=== PATIENT | male | born 1995 | race African-American/Black ===

== ENCOUNTER 2020-02-25 15:59 | Emergency (ER) | payer BC, MEDICAID ==
[~2020-02-25] VITALS: Ht 193 cm; Wt 88.4 kg
[2020-02-25] MEDS ORDERED: AZITHROMYCIN 500 MG TABLET PO ONE (16:15)
[2020-02-25] MEDS ORDERED: CEFTRIAXONE SODIUM 250 MG/VIAL IM ONE (16:15)
[2020-02-25 16:30] VITALS: BP 159/82
[2020-02-25 17:00] LABS: CLARITY URINE TURBID (CLEAR); COLOR URINE YELLOW (YELLOW); KETONES URINE NEGATIVE (NEGATIVE); LEUKOCYTE ESTERASE URINE 2+ (NEGATIVE); NITRITE URINE NEGATIVE (NEGATIVE); OCCULT BLOOD URINE NEGATIVE (NEGATIVE); PH URINE 7.5 (4.5-8.0); PROTEIN URINE NEGATIVE (NEGATIVE); SPECIFIC GRAVITY URINE 1.017 (1.005-1.030)
== END 2020-02-25 16:32 | disposition home or self-care (01) ==
LOC: ER 15:59
DX: Z20.2 Contact with and (suspected) exposure to infections with a predominantly sexual mode of transmission (principal)
CPT/HCPCS: 81003; 87086; 96372; 99283; J0696

== ENCOUNTER 2021-04-27 20:28 | Emergency (ER) | payer BC, MEDICAID ==
[~2021-04-27] VITALS: Ht 185.4 cm; Wt 93.0 kg
[2021-04-27] MEDS ORDERED: ACET-2708 MT (23:49)
[2021-04-27] MEDS ORDERED: IBUP-2029 MT (23:49)
[2021-04-28] MEDS ORDERED: IBUPROFEN 800MG TABLET PO ONE (00:30)
[2021-04-28 00:52] LABS: CLARITY URINE CLEAR (CLEAR); COLOR URINE DARK YELLOW (YELLOW); KETONES URINE TRACE (NEGATIVE); LEUKOCYTE ESTERASE URINE TRACE (NEGATIVE); NITRITE URINE NEGATIVE (NEGATIVE); OCCULT BLOOD URINE NEGATIVE (NEGATIVE); PROTEIN URINE 2+ (NEGATIVE)
[2021-04-28 01:03] LABS: BASOPHILS % 0.7 % (0.0-2.0); HEMATOCRIT. 47.3 % (42.0-52.0); HEMOGLOBIN. 15.8 g/dL (14.0-18.0); LYMPHOCYTES % 36.4 % (20.0-50.0); MEAN CORPUSCULAR HEMOGLOBIN 29.2 pg (28.0-32.0); MEAN CORPUSCULAR VOLUME 87.6 fL (80.0-94.0); MEAN PLATELET VOLUME 7.6 fl (7.4-10.4); MONOCYTES % 10.4 % (2.0-8.0); NEUTROPHILS % 52.5 % (40.0-76.0); PLATELET 199 x1000/uL (130-400); RED CELL DISTRIBUTION WIDTH 13.8 % (11.6-14.6)
[2021-04-28 01:06] LABS: CHLORIDE 103 mEq/L (98-107)
[2021-04-28 02:01] VITALS: BP 118/76
== END 2021-04-28 02:02 | disposition home or self-care (01) ==
LOC: ER 20:28
DX: R50.9 Fever, unspecified (principal); R63.0 Anorexia
CPT/HCPCS: 36415; 80053; 81003; 85025; 99283

== ENCOUNTER 2021-08-24 12:11 | Emergency (ER) | payer OTHER, MEDICAID ==
[~2021-08-24] VITALS: Ht 193 cm; Wt 93.0 kg
[~2021-08-24 12:11] MED LIST: ACET-2708 MT; IBUP-2029 MT
[2021-08-24 12:57] VITALS: BP 153/78
[2021-08-24] MEDS ORDERED: DOXYCYCLINE HYCLATE 100MG CAPSULE PO ONE (13:15)
[2021-08-24] MEDS ORDERED: CEFTRIAXONE SODIUM 500 MG/VIAL IM ONE (13:15)
[2021-08-24] MEDS ORDERED: LIDOCAINE HCL/PF 1% 10 MG/ML 5ML VIAL INFIL ONE (13:15)
[2021-08-24] MEDS ORDERED: NAPR-1176 MT (13:16)
[2021-08-24] MEDS ORDERED: DOXY-326 MT (13:16)
[2021-08-24 13:57] LABS: CLARITY URINE CLEAR (CLEAR); COLOR URINE YELLOW (YELLOW); KETONES URINE NEGATIVE (NEGATIVE); LEUKOCYTE ESTERASE URINE 1+ (NEGATIVE); NITRITE URINE NEGATIVE (NEGATIVE); OCCULT BLOOD URINE NEGATIVE (NEGATIVE); PROTEIN URINE NEGATIVE (NEGATIVE); SPECIFIC GRAVITY URINE 1.019 (1.005-1.030); UROBILINOGEN URINE 0.2 E.U./dL (0.2-1.0)
[2021-08-26 05:12] LABS: HIV SCREEN 4G Non Reactive (Non Reactive)
[2021-08-27 04:07] LABS: NEISSERIA GONORRHOEAE NAA Negative (Negative)
== END 2021-08-24 14:17 | disposition home or self-care (01) ==
LOC: ER 12:11
DX: Z20.2 Contact with and (suspected) exposure to infections with a predominantly sexual mode of transmission (principal); M25.512 Pain in left shoulder
CPT/HCPCS: 81003; 86592; 87086; 87389; 87491; 87591; 96372; 99283; J0696; J3490

== ENCOUNTER 2022-06-06 18:49 | Emergency (ER) | payer MEDICAID, OTHER ==
[~2022-06-06] VITALS: Ht 193 cm; Wt 93.0 kg
[~2022-06-06 18:49] MED LIST changes: +DOXY-326 MT; +NAPR-1176 MT
[2022-06-06 19:51] VITALS: BP 123/81
[2022-06-06] MEDS ORDERED: AZITHROMYCIN 500 MG TABLET PO ONE (23:30)
[2022-06-06] MEDS ORDERED: CEFTRIAXONE SODIUM 500 MG/VIAL IM ONE (23:30)
[2022-06-08 08:11] LABS: HIV SCREEN 4G Non Reactive (Non Reactive)
[2022-06-10 04:07] LABS: NEISSERIA GONORRHOEAE NAA Negative (Negative)
== END 2022-06-06 23:59 | disposition home or self-care (01) ==
LOC: ER 18:58
DX: Z20.2 Contact with and (suspected) exposure to infections with a predominantly sexual mode of transmission (principal); Z70.8 Other sex counseling
CPT/HCPCS: 87389; 87491; 87591; 96372; 99283; J0696

== ENCOUNTER 2025-05-09 16:48 | Emergency (ER) | payer MEDICAID ==
[~2025-05-09] VITALS: Ht 188 cm; Wt 92.0 kg
[~2025-05-09 16:48] MED LIST changes: -DOXY-326 MT; +DOXY-461 MT; +IBUP-1455 MT; -IBUP-2029 MT
[2025-05-09 17:05] VITALS: O2SAT 100
[2025-05-09] MEDS: IBUPROFEN 600MG TABLET PO ONE (18:14)
[2025-05-09] MEDS ORDERED: IBUP-2030 MT (18:15)
[2025-05-09] MEDS ORDERED: LIDO-53 TP (18:15)
[2025-05-09] MEDS: LIDOCAINE 5% PATCH TOP SCH (18:21)
[2025-05-09 18:22] VITALS: BP 130/80; PULSE 80; RESP 15; TEMP 36.8; O2SAT 100
== END 2025-05-09 18:31 | disposition home or self-care (01) ==
LOC: ER 16:48
DX: M75.91 Shoulder lesion, unspecified, right shoulder (principal); Z79.899 Other long term (current) drug therapy
CPT/HCPCS: 73030; 99283

== ENCOUNTER 2025-06-04 22:06 | Emergency (ER) | payer MEDICAID ==
[~2025-06-04] VITALS: Ht 193 cm; Wt 91.0 kg
[~2025-06-04 22:06] MED LIST changes: +IBUP-2030 MT; +LIDO-53 TP
[2025-06-04 22:39] VITALS: O2SAT 98
[2025-06-05] MEDS: METHOCARBAMOL 500MG TABLET PO ONE (00:48)
[2025-06-05] MEDS: KETOROLAC 30MG/ML VIAL IM ONE (00:48)
[2025-06-05] MEDS ORDERED: METH-653 MT (01:22)
[2025-06-05] MEDS ORDERED: LIDO-53 TP (01:22)
[2025-06-05] MEDS ORDERED: IBUP-1455 MT (01:22)
[2025-06-05 02:04] VITALS: BP 140/88; PULSE 65; RESP 20; TEMP 36.9; O2SAT 98
== END 2025-06-05 02:04 | disposition home or self-care (01) ==
LOC: ER 22:06
DX: S33.5XXA Sprain of ligaments of lumbar spine, initial encounter (principal); X58.XXXA Exposure to other specified factors, initial encounter; Y93.89 Activity, other specified; Y92.89 Other specified places as the place of occurrence of the external cause; Y99.8 Other external cause status
CPT/HCPCS: 99283; 72100; 96372; J1885

== ENCOUNTER 2025-06-17 18:31 | Emergency (ER) | payer MEDICAID ==
[~2025-06-17] VITALS: Ht 188 cm; Wt 64.0 kg
[~2025-06-17 18:31] MED LIST changes: +METH-653 MT
[2025-06-17 18:32] VITALS: O2SAT 99
[2025-06-17 18:42] VITALS: BP 152/83; PULSE 99; RESP 16; TEMP 36.8; O2SAT 97
[2025-06-17] MEDS: CYCLOBENZAPRINE 10MG TABLET PO ONE (22:09)
[2025-06-17] MEDS: KETOROLAC 30MG/ML VIAL IM ONE (22:30)
[2025-06-18] MEDS: IOHEXOL-350 100 ML BOTTLE ONE (00:15)
[2025-06-18] MEDS ORDERED: CYCL10TA21 MT (00:29)
[2025-06-18] MEDS ORDERED: IBUP-2030 MT (00:29)
== END 2025-06-18 00:48 | disposition home or self-care (01) ==
LOC: ER 18:31
DX: M54.50 Low back pain, unspecified (principal); Z79.899 Other long term (current) drug therapy
CPT/HCPCS: 99285; 72131; 96372; J1885; Q9967